=== PATIENT | male | born 1950 | race Caucasian/White ===

== ENCOUNTER 2017-06-03 17:19 | Emergency (ER) | payer MEDICARE, BC ==
[2017-06-03] MEDS ORDERED: Acetaminophen/HYDROcodone 325-5 MG Tab PO ONE (17:20)
--- NOTE | 2017-06-03 18:40 | EDM.PDOC ---
ED HPI GENERAL MEDICAL PROBLEM - General Chief Complaint: Laceration Stated Complaint: "cut my head open" Time Seen by Provider: 06/03/17 17:45 Source of Information: Reports: Patient History Limitations: Reports: No Limitations - History of Present Illness INITIAL COMMENTS - FREE TEXT/NARRATIVE: Patient is a 66 year old male who presents to the ER after injuring his head. He reports that he was driving his four-honeycutt into the back of a horse trailer. He was standing up when entering the horse trailer and hit his head on the top of the trailer. He reports that the injury happened about two hours prior to ER presentation around 1500 today. He denies any LOC, dizziness, or lightheadedness at the time of injury. Does report some pain in the area and also a headache initially. At the time of examination, his headache had resolved. His only complaint was some pain to the incision. Onset: Today Onset Time: 15:00 Location: Reports: Head Head Pain Score (Numeric/FACES): 2 - Related Data Allergies Allergy/AdvReac Type Severity Reaction Status Date / Time No Known Allergies Allergy Verified 06/03/17 18:15 Home Meds: Home Meds Acetaminophen/HYDROcodone [Take Home: Acetam/HYDROcodon 325-5 MG, 5 Pack] 1 packet PO ONETIME #1 tablet 06/03/17 [Rx] Cephalexin [Keflex] 500 mg PO BID 7 Days #14 cap 06/03/17 [Rx] Loperamide [Imodium] 2 mg PO ASDIRECTED PRN 06/03/17 [History] Past Medical History - Past Health History Medical/Surgical History: Denies Medical/Surgical History Social & Family History - Tobacco Use Smoking Status *Q: Current Every Day Smoker Years of Tobacco use: 50 Packs/Tins Daily: 1 - Caffeine Use Caffeine Use: Reports: Coffee - Alcohol Use Days Per Week of Alcohol Use: 4 Number of Drinks Per Day: 3 Total Drinks Per Week: 12 - Recreational Drug Use Recreational Drug Use: No ED ROS GENERAL - Review of Systems Review Of Systems: ROS reveals no pertinent complaints other than HPI. HEENT: Denies: Dental Pain, Ear Discharge, Ear Pain, Eye Discharge, Eye Pain, Nose Pain, Sinus Problem, Vertigo, Vision Change Respiratory: Reports: No Symptoms Cardiovascular: Reports: No Symptoms Endocrine: Reports: No Symptoms GI/Abdominal: Reports: Diarrhea : Reports: No Symptoms Musculoskeletal: Reports: No Symptoms Skin: Reports: Wound (posteror scalp) Neurological: Reports: Headache. Denies: Confusion, Dizziness, Numbness, Paresthesia, Pre-Existing Deficit, Seizure, Syncope, Tingling, Tremors, Trouble Speaking, Difficulty Walking, Weakness, Change in Speech, Gait Disturbance Psychiatric: Reports: No Symptoms Hematologic/Lymphatic: Reports: No Symptoms Immunologic: Reports: No Symptoms ED EXAM, SKIN/RASH Exam: See Below Exam Limited By: No Limitations General Appearance: Alert, WD/WN, No Apparent Distress Eye Exam: Bilateral Eye: EOMI, Normal Fundi, Normal Inspection, PERRL Ears: Normal External Exam, Normal Canal, Hearing Grossly Normal, Normal TMs Nose: Normal Inspection, Normal Mucosa, No Blood Throat/Mouth: Normal Inspection, Normal Teeth, Normal Gums, Normal Oropharynx, Normal Voice, No Airway Compromise, Other (large scabbed area to right posterior lip, pt reports he has had "for years") Head: Other (large laceration to posterior scalp, bleeding, pressure applied) Neck: Normal Inspection, Supple, Non-Tender, Full Range of Motion Respiratory/Chest: No Respiratory Distress, Lungs Clear, Normal Breath Sounds, No Accessory Muscle Use, Chest Non-Tender Cardiovascular: Normal Peripheral Pulses, Regular Rate, Rhythm, No Edema, No Gallop, No JVD, No Murmur, No Rub Peripheral Pulses: 2+: Radial (L), Radial (R), Posterior Tibial (L), Posterior Tibial (R), Dorsalis Pedis (L), Dorsalis Pedis (R) GI/Abdominal: Normal Bowel Sounds, Soft, Non-Tender, No Organomegaly, No Distention, No Abnormal Bruit, No Mass (Male) Exam: Deferred Rectal (Males) Exam: Deferred Back Exam: Normal Inspection, Full Range of Motion, NT Extremities: Normal Inspection, Normal Range of Motion, Non-Tender, No Pedal Edema, Normal Capillary Refill Neurological: Alert, Oriented, CN II-XII Intact, Normal Cognition, Normal Gait, Normal Reflexes, No Motor/Sensory Deficits Psychiatric: Normal Affect, Normal Mood Skin: Warm, Dry, Intact, Normal Color, No Rash, Wound/Incision Location, Skin: Head Lymphatic: No Adenopathy ED SKIN PROCEDURES - Laceration/Wound Repair Posterior Midline Head Lac/Wound length In cm: 11 Appearance: Subcutaneous Anesthetic Type: Local Local Anesthesia - Lidocaine (Xylocaine): 1% with EPI Local Anesthetic Volume: 5cc Skin Prep: Chlorhexidine (Hibiciens), Sterile Drape, Other (Sure Cleanse) Exploration/Debridement/Repair: Minimal Debridement (clots removed) Closed with: Sutures Suture Size: 4-0 # of Sutures: 18 Suture Type: Nylon Sterile Dressing Applied: Provider Tetanus Status Addressed: Yes (up to date) Complications: No Course - Vital Signs Last Recorded V/S: Last Vital Signs Temp 97.1 F 06/03/17 17:25 Pulse 68 06/03/17 17:25 Resp 16 06/03/17 17:25 BP 142/99 H 06/03/17 17:25 Pulse Ox 95 06/03/17 17:25 - Orders/Labs/Meds Orders: Active Orders 24 hr Category Date Time Status Head wo Cont [CT] Stat Exams 06/03/17 17:58 Ordered Meds: Medications Discontinued Medications Generic Name Dose Route Start Last Admin Trade Name Poly PRN Reason Stop Dose Admin Lidocaine/Epinephrine 20 ml 06/03/17 18:45 Xylocaine 1% With Epinephrine 1:100,000 INJECT 06/03/17 18:46 ONETIME ONE - Radiology Interpretation Free Text/Narrative:: Radiology reported no acute intracranial bleeds or ischemic changes. Does show some chronic sinusitis as well as chronic small vessel white matter ischemic changes. Some small subcutaneous hemorrhage in the posterior aspect of skull, but no fractures. CT Results Date: 06/03/17 CT Results Time: 18:38 Departure - Departure Time of Disposition: 20:21 Disposition: Home, Self-Care 01 Clinical Impression: Laceration of head Qualifiers: Encounter type: initial encounter Location of open wound of head: scalp Foreign body presence: without foreign body Qualified Code(s): S01.01XA - Laceration without foreign body of scalp, initial encounter - Discharge Information Prescriptions: Acetaminophen/HYDROcodone [Take Home: Acetam/HYDROcodon 325-5 MG, 5 Pack] 1 packet PO ONETIME #1 tablet Cephalexin [Keflex] 500 mg PO BID 7 Days #14 cap Instructions: Laceration Care, Adult, [id number], Stitches, Ilia, or Adhesive Wound Closure, [id number] Referrals: Mariah Appiah TUBE BLOWER [Emergency Provider] - Forms: ED Department Discharge Additional Instructions: Ice affected area 4-5 times per day for 20 minutes at a time. Take antibiotics as prescribed. Tylenol/ibuprofen as needed for pain. Do not soak affected area in water. May shower in 24 hours, but do not scrub affected site. Let water run off of head. Follow up for suture removal and recheck of wound in 7 days. - Problem List & Annotations (1) Laceration of head SNOMED Code(s): 192917200 Code(s): S01.91XA - LACERATION W/O FOREIGN BODY OF UNSP PART OF HEAD, INIT Status: Acute Qualifiers: Encounter type: initial encounter Location of open wound of head: scalp Foreign body presence: without foreign body Qualified Code(s): S01.01XA - Laceration without foreign body of scalp, initial encounter - Problem List Review Problem List Initiated/Reviewed/Updated: Yes - My Orders Last 24 Hours: My Active Orders 06/03/17 17:58 Head wo Cont [CT] Stat - Assessment/Plan Last 24 Hours: My Active Orders 06/03/17 17:58 Head wo Cont [CT] Stat Plan: Follow up in 7 days for suture removal and wound check. 4 tabs of [place] given to patient upon discharge. Script for Keflex 500 mg BID x 7 days. Ice affected area 4-5 times per day for 20 minutes.
[2017-06-03] MEDS ORDERED: Lidocaine 1% with EPINEPHrine 1:100,000 20 ML MDV INJECT ONE (18:45)
[2017-06-03] MEDS ORDERED: Take Home: Acetaminophen/HYDROcodone 325-5 MG, 2 Tab Pack PO ONE (20:31)
== END 2017-06-03 20:35 | disposition home or self-care (01) ==
LOC: CC.ED 17:19
DX: S01.01XA Laceration without foreign body of scalp, initial encounter (principal); F17.210 Nicotine dependence, cigarettes, uncomplicated; W22.8XXA Striking against or struck by other objects, initial encounter
CPT/HCPCS: 12004; 70450; 99283; A9270

== ENCOUNTER → 2017-09-10 | Day surgery (SDC) | payer MEDICARE, BC ==
[~2017-09-10] MED LIST: Lactated Ringers 1,000 ML IV SCH; Ondansetron 4 MG/2 ML SDV IV ONE; Propofol 200 MG/20 ML SDV IV ONE
--- NOTE | 2017-09-13 09:26 | OR ---
DATE OF OPERATION: 09/10/2017 PREOPERATIVE DIAGNOSIS: PERSISTENT DIARRHEA. POSTOPERATIVE DIAGNOSIS: PERSISTENT DIARRHEA. SURGEON: Fercho Holly MD PROCEDURE: FULL-LENGTH COLONOSCOPY WITH RANDOM COLON BIOPSIES X5, SNARE POLYPECTOMY X4, POLYP REMOVAL WITH FORCEPS X3. 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 COMPLICATIONS: None. SPECIMEN: 1. Random colon biopsies x5 at ascending, hepatic, transverse, sigmoid, and rectosigmoid junction. 2. Large tubulovillous adenoma, rectosigmoid junction. 3. Tubular adenoma x2 rectosigmoid junction. 4. Three separate hyperplastic polyps, rectal vault. RECOMMENDATIONS: The patient is going to need a followup scope in the next year due to the number of polyps and the size of the tubulovillous lesion in the rectosigmoid area, a close followup with Jasbir Isaacs for results of his biopsies and path reports. INDICATIONS: The patient is a 67-year-old with no prior history of colonoscopy. He has had persistent diarrhea for 4 to 5 months and weight loss. Jasbir sent him for colonoscopy. DESCRIPTION OF PROCEDURE: The patient was prepped and draped, placed in the left lateral decubitus position. A lubricated Olympus colonoscope was inserted and with some degree of difficulty advanced to the cecum. The patient is very thin and it is hard to get through the sigmoid, but once into the descending colon, scope advanced quickly and easily to the cecal pouch where we directly visualized the ileocecal valve and appendiceal orifice. The bowel prep was adequate. Upon withdrawal of the scope, the right transverse and descending colon areas appeared benign. We did do random colon biopsies in the ascending hepatic flexure, transverse colon, and sigmoid area. Near the rectosigmoid junction, the patient did have some evidence of some very mild nonspecific colitis without any ulceration, we did do 2 biopsies of that. Also at the rectosigmoid junction, the patient had a large tubulovillous adenoma well over 1 cm in size. It was removed with a snare and had to be brought out through the anus with the wire. He had 2 more adenomas in the proximal rectum rectosigmoid junction, also removed with the snare and suctioned a polyp traps 1 and 2 respectively. There were a plethora of small hyperplastic-appearing polyps in the rectal vault. We removed 3 of them with cold forceps biopsy without any complication. There were 2 or 3 more and they were almost too small to see and that were left. Retroflexion showed no perianal lesions. Air was suctioned and the scope was removed without complication. IRMA/JING /[id number]
== END ==
LOC: CC.SDS 09:22
PROVIDERS: ATTEND Family Medicine
DX: C19 Malignant neoplasm of rectosigmoid junction (principal); D12.8 Benign neoplasm of rectum; K63.5 Polyp of colon; K62.1 Rectal polyp; K52.832 Lymphocytic colitis; F17.210 Nicotine dependence, cigarettes, uncomplicated; Z72.0 Tobacco use
CPT/HCPCS: 45380; 45385; J2405; J2704; J7120; 88305; 88341; 88342